=== PATIENT | female | born 1940 | race Caucasian/White ===

== ENCOUNTER 2019-06-12 18:40 | Inpatient (IN) | payer MEDICARE ==
[2019-06-12] MEDS ORDERED: Sodium Chloride 0.9% 10 ML Syringe FLUSH PRN (18:45)
--- NOTE | 2019-06-12 18:56 | EDM.PDOC ---
ED HPI GENERAL MEDICAL PROBLEM - General Chief Complaint: General Stated Complaint: MEDICAL Time Seen by Provider: 06/12/19 18:40 Source of Information: Reports: Patient, EMS History Limitations: Reports: Other (mild confusion) - History of Present Illness INITIAL COMMENTS - FREE TEXT/NARRATIVE: 79 yo female is brought in by EMS after she wouldn't answer her phone when the son called. Police notified by son. Police found her lying on the floor of her place where she lives alone. She is not clear how long or why she was on the floor. Mildly confused en route and on arrival. Is a Dr. Ruiz patient. Katlyn denies pain. Admits to daily ETOH. Onset: Unknown/Unsure Duration: Hour(s): Location: Reports: Generalized Quality: Reports: Other (no pain reported) Severity: Moderate Improves with: Reports: Other (unknown) Worsens with: Reports: Other (unknown) Context: Reports: Other (See HPI) Associated Symptoms: Reports: Confusion (mild), Syncope (vs elderly fall?). Denies: Fever/Chills, Headaches, Nausea/Vomiting, Seizure, Shortness of Breath Treatments SHIPPER/RECEIVER: Reports: Other (see below) (none) Denies Pain Score (Numeric/FACES): 0 - Related Data Allergies Allergy/AdvReac Type Severity Reaction Status Date / Time prednisone Allergy Rash Verified 06/12/19 18:54 Sulfa (Sulfonamide Allergy Rash Verified 06/12/19 18:54 Antibiotics) Home Meds: Home Meds Losartan [Cozaar] 50 mg PO DAILY 06/12/19 [History] Omeprazole 20 mg PO DAILY 06/12/19 [History] rOPINIRole [Requip] 1 mg PO DAILY 06/12/19 [History] ED ROS GENERAL - Review of Systems Review Of Systems: See Below Constitutional: Reports: Malaise HEENT: Reports: No Symptoms Respiratory: Reports: No Symptoms Cardiovascular: Reports: No Symptoms Endocrine: Reports: No Symptoms GI/Abdominal: Reports: No Symptoms : Reports: No Symptoms Musculoskeletal: Reports: No Symptoms Skin: Reports: No Symptoms Neurological: Reports: Confusion (mild) Psychiatric: Reports: No Symptoms ED EXAM, GENERAL - Physical Exam Exam: See Below Exam Limited By: No Limitations General Appearance: Alert, WD/WN, No Apparent Distress Eye Exam: Bilateral Eye: EOMI, PERRL, Other (Some blood from the R eye.) Ears: Normal External Exam, Normal Canal, Hearing Grossly Normal, Normal TMs Ear Exam: Bilateral Ear: Auricle Normal, Canal Normal, TM normal Nose: Normal Inspection, No Blood Throat/Mouth: Other (dry oral mucosa with some food adherent to teeth.) Head: Atraumatic, Normocephalic Neck: Normal Inspection, Non-Tender Respiratory/Chest: No Respiratory Distress, Lungs Clear, Normal Breath Sounds, No Accessory Muscle Use Cardiovascular: Regular Rate, Rhythm, No Edema GI/Abdominal: Normal Bowel Sounds, Soft, Non-Tender, No Distention Back Exam: Normal Inspection. No: CVA Tenderness (R), CVA Tenderness (L) Extremities: Normal Inspection, Normal Range of Motion, Non-Tender, No Pedal Edema Neurological: Alert, CN II-XII Intact, No Motor/Sensory Deficits, Other (mildly confused, says Dr. Ruiz was at her home today helping her with her leaves.) Psychiatric: Normal Affect, Normal Mood Skin Exam: Warm, Dry, Intact, Normal Color, No Rash EKG INTERPRETATION EKG Date: 06/12/19 Time: 19:45 Rhythm: NSR Rate (Beats/Min): 109 [place]: Normal P-Wave: Present QRS: Normal ST-T: Normal QT: Normal Comparison: NA - No Prior EKG EKG Interpretation Comments: ? anteroseptal infarct, old. Course - Vital Signs Text/Narrative:: Dr. Deleon paged @ , Dr. Ruiz called @ Last Recorded V/S: Last Vital Signs Temp 36.1 C 06/12/19 19:08 Pulse 109 H 06/12/19 20:23 Resp 18 06/12/19 19:08 BP 154/94 H 06/12/19 20:23 Pulse Ox 99 06/12/19 19:08 - Orders/Labs/Meds Orders: Active Orders 24 hr Category Date Time Status Cardiac Monitoring [RC] .As Directed Care 06/12/19 18:44 Active EKG Documentation Completion [RC] ASDIRECTED Care 06/12/19 19:46 Active CREATINE KINASE,CK [CHEM] Stat Lab 06/12/19 20:38 Received CULTURE BLOOD [BC] Stat Lab 06/12/19 18:45 Received CULTURE BLOOD [BC] Stat Lab 06/12/19 18:55 Received Piperacillin/Tazobactam [Zosyn] 3.375 gm Med 06/12/19 20:30 Active Sodium Chloride 0.9% [Normal Saline] 50 ml IV NOW Sodium Chloride 0.9% [Normal Saline] 1,000 ml Med 06/12/19 19:48 Active IV .BOLUS Sodium Chloride 0.9% [Saline Flush] Med 06/12/19 18:45 Active 10 ml FLUSH ASDIRECTED PRN Saline Lock Insert [OM.PC] Routine Oth 06/12/19 18:45 Ordered EKG 12 Lead [EK] Routine Ther 06/12/19 19:46 Ordered Medication Orders Sodium Chloride (Normal Saline) 1,000 mls @ 1,000 mls/hr IV .BOLUS ONE Stop: 06/12/19 20:47 Last Admin: 06/12/19 19:53 Dose: 1,000 mls/hr Piperacillin Sod/Tazobactam (Sod 3.375 gm/ Sodium Chloride) 50 mls @ 100 mls/ hr IV NOW STA Stop: 06/12/19 20:59 Sodium Chloride (Saline Flush) 10 ml FLUSH ASDIRECTED PRN PRN Reason: Keep Vein Open Labs: Laboratory Tests 06/12/19 06/12/19 06/12/19 Range/Units 18:58 18:58 18:58 WBC 8.4 (4.5-11.0) K/uL RBC 5.16 (3.30-5.50) M/uL Hgb 16.4 H (12.0-15.0) g/dL Hct 51.6 H (36.0-48.0) % MCV 100 H (80-98) fL MCH 32 H (27-31) pg MCHC 32 (32-36) % Plt Count 126 L (150-400) K/uL Sodium 139 L (140-148) mmol/L Potassium 5.0 (3.6-5.2) mmol/L Chloride 101 (100-108) mmol/L Carbon Dioxide 15 L (21-32) mmol/L Anion Gap 28.0 H (5.0-14.0) mmol/L BUN 58 H (7-18) mg/dL Creatinine 2.1 H (0.6-1.0) mg/dL Est Cr Clr Drug Dosing 16.02 mL/min Estimated GFR (MDRD) 23 L (>60) Glucose 79 (74-106) mg/dL Lactic Acid (0.4-2.0) mmol/L Calcium 9.8 (8.5-10.1) mg/dL Total Bilirubin 2.4 H (0.2-1.0) mg/dL AST 121 H (15-37) U/L ALT 83 H (12-78) U/L Alkaline Phosphatase 98 (46-116) U/L Troponin I 0.279 H* (0.000-0.056) ng/mL Total Protein 7.9 (6.4-8.2) g/dL Albumin 4.2 (3.4-5.0) g/dL Globulin 3.7 H (2.3-3.5) g/dL Albumin/Globulin Ratio 1.1 L (1.2-2.2) Urine Color (YELLOW) Urine Appearance (CLEAR) Urine pH (5.0-8.0) Ur Specific [place] (1.008-1.030) Urine Protein (NEGATIVE) mg/dL Urine Glucose (UA) (NEGATIVE) mg/dL Urine Ketones (NEGATIVE) mg/dL Urine Occult Blood (NEGATIVE) Urine Nitrite (NEGATIVE) Urine Bilirubin (NEGATIVE) Urine Urobilinogen (0.2-1.0) EU/dL Ur Leukocyte Esterase (NEGATIVE) Urine RBC (0-5) Urine WBC (0-5) Ur Epithelial Cells Amorphous Sediment Urine Bacteria Urine Mucus Urine Other Ethyl Alcohol < 3 mg/dL 06/12/19 06/12/19 Range/Units 19:49 20:19 WBC (4.5-11.0) K/uL RBC (3.30-5.50) M/uL Hgb (12.0-15.0) g/dL Hct (36.0-48.0) % MCV (80-98) fL MCH (27-31) pg MCHC (32-36) % Plt Count (150-400) K/uL Sodium (140-148) mmol/L Potassium (3.6-5.2) mmol/L Chloride (100-108) mmol/L Carbon Dioxide (21-32) mmol/L Anion Gap (5.0-14.0) mmol/L BUN (7-18) mg/dL Creatinine (0.6-1.0) mg/dL Est Cr Clr Drug Dosing mL/min Estimated GFR (MDRD) (>60) Glucose (74-106) mg/dL Lactic Acid 8.4 H (0.4-2.0) mmol/L Calcium (8.5-10.1) mg/dL Total Bilirubin (0.2-1.0) mg/dL AST (15-37) U/L ALT (12-78) U/L Alkaline Phosphatase (46-116) U/L Troponin I (0.000-0.056) ng/mL Total Protein (6.4-8.2) g/dL Albumin (3.4-5.0) g/dL Globulin (2.3-3.5) g/dL Albumin/Globulin Ratio (1.2-2.2) Urine Color Brown A (YELLOW) Urine Appearance Cloudy A (CLEAR) Urine pH 5.5 (5.0-8.0) Ur Specific [place] >= 1.030 (1.008-1.030) Urine Protein >=300 H (NEGATIVE) mg/dL Urine Glucose (UA) 100 H (NEGATIVE) mg/dL Urine Ketones Negative (NEGATIVE) mg/dL Urine Occult Blood Moderate H (NEGATIVE) Urine Nitrite Negative (NEGATIVE) Urine Bilirubin Moderate H (NEGATIVE) Urine Urobilinogen 1.0 (0.2-1.0) EU/dL Ur Leukocyte Esterase Negative (NEGATIVE) Urine RBC 5-10 H (0-5) Urine WBC 0-5 (0-5) Ur Epithelial Cells Moderate Amorphous Sediment Not seen Urine Bacteria Not seen Urine Mucus Many Urine Other Ethyl Alcohol mg/dL Meds: Medications Generic Name Dose Route Start Last Admin Trade Name Freq PRN Reason Stop Dose Admin Sodium Chloride 1,000 mls @ 1,000 mls/hr 06/12/19 19:48 06/12/19 19:53 Normal Saline IV 06/12/19 20:47 1,000 mls/hr .BOLUS ONE Administration Piperacillin Sod/Tazobactam 50 mls @ 100 mls/hr 06/12/19 20:30 Sod 3.375 gm/ Sodium Chloride IV 06/12/19 20:59 NOW STA Sodium Chloride 10 ml 06/12/19 18:45 Saline Flush FLUSH ASDIRECTED PRN Keep Vein Open Discontinued Medications Generic Name Dose Route Start Last Admin Trade Name Freq PRN Reason Stop Dose Admin Aspirin 324 mg 06/12/19 19:48 06/12/19 19:57 Aspirin PO 06/12/19 19:49 324 mg ONETIME ONE Administration Losartan Potassium 50 mg 06/12/19 19:50 06/12/19 19:56 Cozaar PO 06/12/19 19:51 50 mg ONETIME ONE Administration Metoprolol Tartrate 25 mg 06/12/19 19:55 06/12/19 20:09 Lopressor PO 06/12/19 19:56 25 mg ONETIME ONE Administration Departure - Departure Time of Disposition: 20:50 Disposition: Admitted As Inpatient 66 Condition: Fair Clinical Impression: Dehydration, Elevated LFTs Chronic renal failure Qualifiers: Chronic kidney disease stage: stage 4 (severe) Qualified Code(s): N18.4 - Chronic kidney disease, stage 4 (severe) - Discharge Information *PRESCRIPTION DRUG MONITORING PROGRAM REVIEWED*: No *COPY OF PRESCRIPTION DRUG MONITORING REPORT IN PATIENT AMBER: No Referrals: PCP,None [Primary Care Provider] - Forms: ED Department Discharge - My Orders Last 24 Hours: My Active Orders 06/12/19 18:44 Cardiac Monitoring [RC] .As Directed 06/12/19 18:45 CULTURE BLOOD [BC] Stat Sodium Chloride 0.9% [Saline Flush] 10 ml FLUSH ASDIRECTED PRN Saline Lock Insert [OM.PC] Routine 06/12/19 18:55 CULTURE BLOOD [BC] Stat 06/12/19 19:46 EKG Documentation Completion [RC] ASDIRECTED EKG 12 Lead [EK] Routine 06/12/19 19:48 Sodium Chloride 0.9% [Normal Saline] 1,000 ml IV .BOLUS 06/12/19 20:30 Piperacillin/Tazobactam [Zosyn] 3.375 gm Sodium Chloride 0.9% [Normal Saline] 50 ml IV NOW 06/12/19 20:38 CREATINE KINASE,CK [CHEM] Stat - Assessment/Plan Last 24 Hours: My Active Orders 06/12/19 18:44 Cardiac Monitoring [RC] .As Directed 06/12/19 18:45 CULTURE BLOOD [BC] Stat Sodium Chloride 0.9% [Saline Flush] 10 ml FLUSH ASDIRECTED PRN Saline Lock Insert [OM.PC] Routine 06/12/19 18:55 CULTURE BLOOD [BC] Stat 06/12/19 19:46 EKG Documentation Completion [RC] ASDIRECTED EKG 12 Lead [EK] Routine 06/12/19 19:48 Sodium Chloride 0.9% [Normal Saline] 1,000 ml IV .BOLUS 06/12/19 20:30 Piperacillin/Tazobactam [Zosyn] 3.375 gm Sodium Chloride 0.9% [Normal Saline] 50 ml IV NOW 06/12/19 20:38 CREATINE KINASE,CK [CHEM] Stat
[2019-06-12] MEDS ORDERED: Sodium Chloride 0.9% 1,000 ML IV ONE (19:48)
[2019-06-12] MEDS ORDERED: Aspirin 81 MG Tab.Chew PO ONE (19:48)
[2019-06-12] MEDS ORDERED: Losartan 50 MG Tab PO ONE (19:50)
[2019-06-12] MEDS ORDERED: Metoprolol Tartrate 25 MG Tab PO ONE (19:55)
[2019-06-12] MEDS ORDERED: Piperacillin/Tazobactam 3.375 GM in Sodium Chloride 0.9% 50 ML IV STA (20:30)
[2019-06-12] MEDS ORDERED: Sodium Chloride 0.9% 500 ML IV ONE (20:49)
[2019-06-12] MEDS ORDERED: Acetaminophen 325 MG Tab PO PRN (21:45)
[2019-06-12] MEDS: Sodium Chloride 0.9% 1,000 ML IV SCH (23:40)
--- NOTE | 2019-06-13 01:48 | HP ---
IDENTIFYING DATA: Katlyn Dee is a 79-year-old , female from [place], [place]. CHIEF COMPLAINT: Weakness and confusion. HISTORY OF PRESENT ILLNESS: This elderly female, who resides independently alone, generally performing ADLs, housekeeping, and errands with driving by self, is delivered to the emergency room by medical emergency personnel this evening. The family members in presence indicate for approximately 3-4 days' time, they have attempted to call and had no answer. Law enforcement was summoned this afternoon. They arrived at the house to find Katlyn lying on her kitchen floor for an unspecified period of time. Katlyn is confused, unable to provide factual information. She does note generalized discomfort and thirst, but offers no other complaints. Family has noted over the last 2-3 months transient episodes of mild confusion. Additionally, she has had 1 recent witnessed fall on an outside sidewalk with contusion to the right aspect of the face when she tripped during a family gathering in March. She has had no other reported falls. It is unknown whether she is using medications as prescribed. Family feels that she has had recent weight loss with reduced nutritional intake, though again this cannot be quantified with limited observation by family. She does have a remote history of heavy alcohol use, more recently reporting to myself during outpatient visits abstinence from use of alcohol. Family now reports that she has recently begun drinking again, although volume is unknown. PAST MEDICAL HISTORY: She has a history of chronic dysthymia, history of widespread atherosclerosis with previous CVA, peripheral vascular disease, abdominal aortic aneurysm repair, and noted ischemic heart disease. She does have accompanying hypertension and hyperlipidemia. MEDICATIONS: At present by medical records indicate a history of calcium 600 mg daily, vitamin D3 1000 units daily, ginkgo biloba extract 120 mg daily, losartan 50 mg daily, ropinirole 1 mg daily, vitamin E 400 units daily, aspirin 81 mg daily, atorvastatin 80 mg daily, omeprazole 20 mg daily, and sertraline 100 mg daily. Again, could not confirm use or disuse of medications. ALLERGIES: REPORTED TO PREDNISONE AND SULFA. HABITS: Remote history of tobacco use, believed to be abstaining. Recent reports of resumption of alcohol use. Caffeine intake is unknown. IMMUNIZATIONS: Unknown whether the patient has received her annual influenza vaccine. SOCIAL HISTORY: She is , living alone. Intermittent contact with family members. Generally performs ADLs independently, drives, shops, and maintains her household without assistance. FAMILY HISTORY: Unable to obtain. REVIEW OF SYSTEMS: NEUROLOGIC: She does wear glasses. Remote history of stroke secondary to aneurysmal bleed without residual neurologic deficits. No history of chronic headaches or glaucoma. CARDIAC: History of ischemic heart disease with previous interventional therapy. Denies chest pain or palpitations. Denies loss of consciousness. No history of diabetes, hypertension, and hyperlipidemia are managed with pharmacologic therapy. RESPIRATORY: No history of asthma, emphysema, or known tuberculosis. Denies cough or shortness of breath. GI: No history of hepatitis, jaundice, or chronic peptic ulcer disease. Dyspepsia is managed with PPI agents. Unknown state of bowel function at present. : The patient denies discomfort. Incontinence is noted. MUSCULOSKELETAL: General bruising and myalgias with arthralgias noted this evening after extended period of time on the floor. PHYSICAL EXAMINATION: GENERAL: Appearance is that of a weakened elderly female with noted confusion, unable to provide factual information. VITAL SIGNS: Initial vitals; temperature 36.1 degrees centigrade, pulse 109, respiratory rate 18, blood pressure 154/94, O2 sats 99% on room air. HEENT: Some bruising about the facial area. Mild conjunctival injection. Ears show normal canals. Pupils reactive to light and symmetrical in movement. Upper denture plate is missing. Some maceration of the lips. Oral mucosa is dry. NECK: Brisk carotid pulses. No bruits or JVD noted. No nuchal rigidity. LUNGS: Clear and non-tachypneic, symmetrical. HEART: Regular. Grade 1-2 outflow murmur at the aortic area. Controlled rate. ABDOMEN: Active sounds. Nondistended. No obvious organomegaly. Generalized diffuse mild tenderness to palpation without guarding, rebound, or referred pain. No CVA tenderness is noted. AND RECTAL: Omitted. EXTREMITIES: Bruises and superficial abrasions about the hands, proximal arms, knees, and pretibial regions. SKIN: Cool to touch. Diminished pulses chronically at the ankles secondary to peripheral vascular disease. No open ischemic skin lesions. No pitting edema. Some mottling of the fingertips and distal feet. NEUROLOGIC: Generally weakened. No focal weakness. Oriented to person, recognizes the examiner, disoriented to place and time. Unable to provide factual information regarding medical history. LABORATORY DATA: WBC 8.4, hemoglobin 16.4, platelet count 126,000. Sodium 139, potassium 5, BUN 58, creatinine 2.1. GFR 23, glucose 79, bilirubin 2.4, AST 121, ALT 83. Troponin elevated at 0.279. Albumin 4.2. Urinalysis reveals a specific gravity of 1.030 with positive proteinuria, scant glucosuria, moderate occult blood, and bilirubin, 5-10 rbc's, 0- 5 wbc's, no bacteria. Lactic acid elevated at 8.4. Ethyl alcohol level less than 3. IMPRESSION: 1. Period of isolation with general weakness, found in a confused weakened state on the kitchen floor following fall, unknown etiology. 2. History of chronic widespread atherosclerosis with PLSQL DEVELOPER, cardiac, and peripheral vascular disease in the remote past. 3. Hypertension. 4. Hyperlipidemia. 5. Remote history of heavy alcohol use. Family reports now possible resumption of alcohol use. 6. Dehydrated state with acute renal insufficiency secondary to fall. PLAN: The patient is admitted to inpatient status on the medical floor. We will provide IV fluids, Tylenol as analgesic, and resumption of oral home medications with the exception of losartan held in light of renal insufficiency. Allow oral food and fluid intake as tolerated. Followup labs including CBC, metabolic studies, and troponin are requested. Provide assistance with use of commode, up in chair as tolerated. Lloyd catheter is placed with her generally bedridden status. When stronger, we will initiate PT and OT rehab services. Likely will require alf placement following hospital discharge for ongoing recuperative stay. Full code status is enacted. Family including sons present this evening will be involved in medical decision making. Price Ruiz MD /[id number]
[2019-06-13] MEDS: Sodium Chloride 0.9% 1,000 ML IV SCH (04:26)
[2019-06-13] MEDS ORDERED: Sodium Chloride 0.9% 1,000 ML IV SCH (06:00)
--- NOTE | 2019-06-13 06:07 | PN ---
DATE OF SERVICE: 06/13/2019 SUBJECTIVE: A 79-year-old female was admitted in the late evening hours after being found weak and confused, and minimally responsive on her kitchen floor, having fallen and spent unknown length of time without assistance. She had evidence of dehydration and scattered bruises. Family last noted conversation with her 4 days prior to her being discovered. They also report a 4-month history of transient periods of confusion as well as weakness, weight loss, and fall. Questioned poor nutritional intake and potential resumption of alcohol use. Through the nighttime hours, she has been somnolent, sleeping intermittently, requiring assistance of 2 to transfer. Lloyd catheter was placed to monitor urinary output with IV fluids running. She notes generalized mild discomfort. Not requiring analgesic therapy. Nasal cannula oxygen is in place. OBJECTIVE: VITAL SIGNS: Temperature 35.8 degrees centigrade, pulse 66, blood pressure 115/71, respiratory rate 18, O2 sats 100% with nasal cannula oxygen at 3 L/minute. LUNGS: Non-tachypneic. No wheezes or rales heard. HEART: Heart sounds are regular, distant. No gallops noted. EXTREMITIES: Remain cool to touch with a noted history of peripheral vascular disease and chronic marginal perfusion. ABDOMEN: Nondistended with active sounds. Diffuse mild tenderness to deep palpation. No guarding or rebound. LABORATORY DATA: Followup labs this a.m., WBC 7.5, hemoglobin 15.3, platelet count 97,000. Creatine kinase during the nighttime hours was found to be elevated at 366. Repeat general chemistries are pending this a.m. IMPRESSION AND PLAN: 1. Confusion, weakness, likely secondary to fall with accompanying dehydration, acute renal failure. We will continue with IV fluids. Encouraged oral intake including caloric and fluid intake as tolerated. Assistance with self cares will be required when condition shows overall improvement. Consider initiation of PT/OT assessment. I have indicated to family likely will require shelter placement as her recovery progresses. 2. Noted history of elevated liver function tests on admission through the emergency room. Abdominal ultrasound is requested today to exclude hepatobiliary disease. Family has noted resumption of alcohol use. Does have a remote history of heavy use. 3. First dose of Zosyn was provided in the emergency room with blood cultures pending. No obvious signs of active infection at the current time. We will hold antibiotic therapy and review blood cultures on completion. Follow up labs including a CBC, creatine kinase, and general chemistries are requested for 06/14/2019. Price Ruiz MD /[id number]
[2019-06-13] MEDS: Pantoprazole 40 MG Tab.CR PO SCH ×2 (08:38→10:13)
[2019-06-13] MEDS ORDERED: Aspirin 81 MG Tab.EC PO SCH (09:00)
[2019-06-13] MEDS ORDERED: Sertraline 50 MG Tab PO SCH (09:00)
--- NOTE | 2019-06-13 10:22 | CRLUS ---
INDICATION: Elevated LFTs. COMPARISON: None. TECHNIQUE: Real time holt scale imaging and color Doppler analysis was performed of the right upper quadrant. FINDINGS: Liver: Normal echogenicity. Mildly coarsened hepatic echotexture can be seen with chronic parenchymal disease. No focal liver lesions. Gallbladder: There is a 3 mm non shadowing echogenic wall focus most likely representing a small polyp. No stones or sludge. There is diffuse gallbladder wall thickening measuring 8 mm. No pericholecystic fluid. Positive sonographic Nino sign. Bile ducts: The proximal common bile duct is mildly dilated, measuring 8 mm in diameter. The distal common bile duct is not well seen and cannot exclude a distal obstructing stone. Pancreas: Normal where seen. Right kidney: The right kidney measures 8.0 cm in length. No hydronephrosis, calculus, or mass. Vascular: The abdominal aorta is normal in caliber. The main portal vein is patent with normal hepatopetal flow. Ascites: None. IMPRESSION: 1. Diffusely thick-walled gallbladder with dilation of the proximal common bile duct and positive sonographic Nino sign. No stones are seen within the gallbladder itself, however a distal obstructing bile duct stone cannot be excluded based on this exam. Findings are equivocal and could represent acute cholecystitis, however gallbladder wall thickening can also be seen with underlying liver disease. 2. Mildly coarsened hepatic echotexture can be seen with chronic parenchymal disease. 3. Small 3 mm gallbladder polyp. Dictated by Muna Avelar MD @ Jun 13 2019 10:05AM Signed by Dr. Muna Avelar @ Jun 13 2019 10:19AM
[2019-06-13] MEDS ORDERED: Thiamine 100 MG Tab PO SCH (12:00)
[2019-06-13] MEDS ORDERED: Folic Acid 1 MG Tab PO SCH (12:00)
[2019-06-13] MEDS ORDERED: LORazepam 1 MG Tab PO SCH (12:00)
[2019-06-13] MEDS ORDERED: Sodium Polystyrene Sulfonate 15 GM/60 ML Susp 60 ML Bot PO ONE ×2 (12:00→13:30)
--- NOTE | 2019-06-13 12:09 | PCM.PN ---
- General Info Date of Service: 06/13/19 Subjective Update: Ms. Dee is a 79-year-old woman who was admitted through the emergency department last night by Dr. Ruiz. There is some question as to whether she is been consuming alcohol again, she was found on the floor in her kitchen. Duration of time spent on the floor is unknown although she did not have a significant increase in her CK level. She was very confused, family reports a history of progressive cognitive decline over the past few months. She also has become progressively more weak. Lactic acid level was noted to be significantly elevated, likely secondary to severe dehydration. She was found to have acute kidney injury and also mild elevation in her troponin level, felt to be secondary to stress of acute kidney injury and dehydration. She remains very confused and is unable to provide a meaningful history concerning recent symptoms or review of systems. - Patient Data Vitals - Most Recent: Last Vital Signs Temp 97.6 F 06/13/19 10:31 Pulse 61 06/13/19 10:31 Resp 18 06/13/19 10:31 BP 125/74 06/13/19 10:31 Pulse Ox 100 06/13/19 10:31 Weight - Most Recent: 125 lb 11.2 oz I&O - Last 24 Hours: Intake & Output 06/12/19 06/13/19 06/13/19 22:59 06:59 14:59 Output Total 70 10 Balance -70 -10 Lab Results Last 24 Hours: Laboratory Results - last 24 hr 06/12/19 06/12/19 06/12/19 Range/Units 18:58 18:58 18:58 WBC 8.4 (4.5-11.0) K/uL RBC 5.16 (3.30-5.50) M/uL Hgb 16.4 H (12.0-15.0) g/dL Hct 51.6 H (36.0-48.0) % MCV 100 H (80-98) fL MCH 32 H (27-31) pg MCHC 32 (32-36) % Plt Count 126 L (150-400) K/uL Sodium 139 L (140-148) mmol/L Potassium 5.0 (3.6-5.2) mmol/L Chloride 101 (100-108) mmol/L Carbon Dioxide 15 L (21-32) mmol/L Anion Gap 28.0 H (5.0-14.0) mmol/L BUN 58 H (7-18) mg/dL Creatinine 2.1 H (0.6-1.0) mg/dL Est Cr Clr Drug Dosing 16.02 mL/min Estimated GFR (MDRD) 23 L (>60) Glucose 79 (74-106) mg/dL Lactic Acid (0.4-2.0) mmol/L Calcium 9.8 (8.5-10.1) mg/dL Total Bilirubin 2.4 H (0.2-1.0) mg/dL AST 121 H (15-37) U/L ALT 83 H (12-78) U/L Alkaline Phosphatase 98 (46-116) U/L Creatine Kinase (26-192) U/L Troponin I 0.279 H* (0.000-0.056) ng/mL Total Protein 7.9 (6.4-8.2) g/dL Albumin 4.2 (3.4-5.0) g/dL Globulin 3.7 H (2.3-3.5) g/dL Albumin/Globulin Ratio 1.1 L (1.2-2.2) Urine Color (YELLOW) Urine Appearance (CLEAR) Urine pH (5.0-8.0) Ur Specific [place] (1.008-1.030) Urine Protein (NEGATIVE) mg/dL Urine Glucose (UA) (NEGATIVE) mg/dL Urine Ketones (NEGATIVE) mg/dL Urine Occult Blood (NEGATIVE) Urine Nitrite (NEGATIVE) Urine Bilirubin (NEGATIVE) Urine Urobilinogen (0.2-1.0) EU/dL Ur Leukocyte Esterase (NEGATIVE) Urine RBC (0-5) Urine WBC (0-5) Ur Epithelial Cells Amorphous Sediment Urine Bacteria Urine Mucus Urine Other Ethyl Alcohol < 3 mg/dL 06/12/19 06/12/19 06/12/19 Range/Units 19:49 20:19 20:38 WBC (4.5-11.0) K/uL RBC (3.30-5.50) M/uL Hgb (12.0-15.0) g/dL Hct (36.0-48.0) % MCV (80-98) fL MCH (27-31) pg MCHC (32-36) % Plt Count (150-400) K/uL Sodium (140-148) mmol/L Potassium (3.6-5.2) mmol/L Chloride (100-108) mmol/L Carbon Dioxide (21-32) mmol/L Anion Gap (5.0-14.0) mmol/L BUN (7-18) mg/dL Creatinine (0.6-1.0) mg/dL Est Cr Clr Drug Dosing mL/min Estimated GFR (MDRD) (>60) Glucose (74-106) mg/dL Lactic Acid 8.4 H (0.4-2.0) mmol/L Calcium (8.5-10.1) mg/dL Total Bilirubin (0.2-1.0) mg/dL AST (15-37) U/L ALT (12-78) U/L Alkaline Phosphatase (46-116) U/L Creatine Kinase 366 H (26-192) U/L Troponin I (0.000-0.056) ng/mL Total Protein (6.4-8.2) g/dL Albumin (3.4-5.0) g/dL Globulin (2.3-3.5) g/dL Albumin/Globulin Ratio (1.2-2.2) Urine Color Brown A (YELLOW) Urine Appearance Cloudy A (CLEAR) Urine pH 5.5 (5.0-8.0) Ur Specific [place] >= 1.030 (1.008-1.030) Urine Protein >=300 H (NEGATIVE) mg/dL Urine Glucose (UA) 100 H (NEGATIVE) mg/dL Urine Ketones Negative (NEGATIVE) mg/dL Urine Occult Blood Moderate H (NEGATIVE) Urine Nitrite Negative (NEGATIVE) Urine Bilirubin Moderate H (NEGATIVE) Urine Urobilinogen 1.0 (0.2-1.0) EU/dL Ur Leukocyte Esterase Negative (NEGATIVE) Urine RBC 5-10 H (0-5) Urine WBC 0-5 (0-5) Ur Epithelial Cells Moderate Amorphous Sediment Not seen Urine Bacteria Not seen Urine Mucus Many Urine Other Ethyl Alcohol mg/dL 06/13/19 06/13/19 06/13/19 Range/Units 05:00 05:05 05:05 WBC 7.5 (4.5-11.0) K/uL RBC 4.81 (3.30-5.50) M/uL Hgb 15.3 H (12.0-15.0) g/dL Hct 48.4 H (36.0-48.0) % MCV 101 H (80-98) fL MCH 32 H (27-31) pg MCHC 32 (32-36) % Plt Count 97 L (150-400) K/uL Sodium 140 (140-148) mmol/L Potassium 5.6 H (3.6-5.2) mmol/L Chloride 108 (100-108) mmol/L Carbon Dioxide 13 L (21-32) mmol/L Anion Gap 24.6 H (5.0-14.0) mmol/L BUN 59 H (7-18) mg/dL Creatinine 2.1 H (0.6-1.0) mg/dL Est Cr Clr Drug Dosing 17.18 mL/min Estimated GFR (MDRD) 23 L (>60) Glucose 70 L (74-106) mg/dL Lactic Acid (0.4-2.0) mmol/L Calcium 8.3 L D (8.5-10.1) mg/dL Total Bilirubin 2.3 H (0.2-1.0) mg/dL AST 259 H D (15-37) U/L ALT 120 H (12-78) U/L Alkaline Phosphatase 79 (46-116) U/L Creatine Kinase 394 H (26-192) U/L Troponin I 0.494 H* (0.000-0.056) ng/mL Total Protein 6.4 (6.4-8.2) g/dL Albumin 3.3 L (3.4-5.0) g/dL Globulin 3.1 (2.3-3.5) g/dL Albumin/Globulin Ratio 1.1 L (1.2-2.2) Urine Color (YELLOW) Urine Appearance (CLEAR) Urine pH (5.0-8.0) Ur Specific [place] (1.008-1.030) Urine Protein (NEGATIVE) mg/dL Urine Glucose (UA) (NEGATIVE) mg/dL Urine Ketones (NEGATIVE) mg/dL Urine Occult Blood (NEGATIVE) Urine Nitrite (NEGATIVE) Urine Bilirubin (NEGATIVE) Urine Urobilinogen (0.2-1.0) EU/dL Ur Leukocyte Esterase (NEGATIVE) Urine RBC (0-5) Urine WBC (0-5) Ur Epithelial Cells Amorphous Sediment Urine Bacteria Urine Mucus Urine Other Ethyl Alcohol mg/dL Med Orders - Current: Current Medications Acetaminophen (Tylenol) 650 mg PO Q4H PRN PRN Reason: Pain Aspirin (Halfprin) 81 mg PO DAILY [facility] Last Admin: 06/13/19 10:13 Dose: 81 mg Atorvastatin Calcium (Lipitor) 80 mg PO BEDTIME [facility] Folic Acid (Folic Acid) 1 mg PO DAILY [facility] Gentamicin Sulfate (Garamycin 0.3% Ophth Soln) 0 ml EYERT TID [facility] Sodium Chloride (Normal Saline) 1,000 mls @ 75 mls/hr IV ASDIRECTED [facility] Last Admin: 06/13/19 05:56 Dose: 75 mls/hr Multivitamins/Minerals 10 ml/Thiamine HCl 100 mg/ Folic Acid 1 mg/ Magnesium Sulfate 2 gm/ Sodium Chloride 1,015.2 mls @ 100 mls/hr IV ONETIME ONE Stop: 06/13/19 22:02 Influenza Virus Vaccine (Fluzone High-Dose Syringe) 180 mcg IM .ONCE ONE Stop: 06/14/19 14:01 Lorazepam (Ativan) 0 mg PO ASDIRECTED [facility]; Protocol Pantoprazole Sodium (Protonix) 40 mg PO ACBREAKFAST [facility] Last Admin: 06/13/19 10:13 Dose: 40 mg Sertraline HCl (Zoloft) 100 mg PO DAILY [facility] Last Admin: 06/13/19 10:13 Dose: 100 mg Sodium Polystyrene Sulfonate (Kayexalate) 30 gm PO ONETIME ONE Stop: 06/13/19 11:56 Thiamine HCl (Vitamin B-1) 100 mg PO DAILY [facility] Discontinued Medications Aspirin (Aspirin) 324 mg PO ONETIME ONE Stop: 06/12/19 19:49 Last Admin: 06/12/19 19:57 Dose: 324 mg Sodium Chloride (Normal Saline) 1,000 mls @ 1,000 mls/hr IV .BOLUS ONE Stop: 06/12/19 20:47 Last Admin: 06/12/19 19:53 Dose: 1,000 mls/hr Piperacillin Sod/Tazobactam (Sod 3.375 gm/ Sodium Chloride) 50 mls @ 100 mls/ hr IV NOW STA Stop: 06/12/19 20:59 Last Admin: 06/12/19 21:10 Dose: 100 mls/hr Sodium Chloride (Normal Saline) 500 mls @ 1,000 mls/hr IV .BOLUS ONE Stop: 06/12/19 21:18 Last Admin: 06/12/19 21:05 Dose: 1,000 mls/hr Sodium Chloride (Normal Saline) 1,000 mls @ 125 mls/hr IV ASDIRECTED [facility] Last Infusion: 06/13/19 05:55 Dose: 125 mls/hr Losartan Potassium (Cozaar) 50 mg PO ONETIME ONE Stop: 06/12/19 19:51 Last Admin: 06/12/19 19:56 Dose: 50 mg Metoprolol Tartrate (Lopressor) 25 mg PO ONETIME ONE Stop: 06/12/19 19:56 Last Admin: 06/12/19 20:09 Dose: 25 mg Sodium Chloride (Saline Flush) 10 ml FLUSH ASDIRECTED PRN PRN Reason: Keep Vein Open - Exam Quality Assessment: DVT Prophylaxis General: Lethargic, Other (Confused) Lungs: Clear to Auscultation, Normal Respiratory Effort Cardiovascular: Regular Rate, Regular Rhythm, No Murmurs GI/Abdominal Exam: Soft, Non-Tender, No Organomegaly, No Distention Extremities: Non-Tender, No Pedal Edema Skin: Warm, Dry, Ecchymosis - Problem List Review Problem List Initiated/Reviewed/Updated: Yes - My Orders Last 24 Hours: My Active Orders 06/13/19 11:53 CIWAA Assessment [RC] Q4H Notify Provider [RC] PRN MVI, Adult with Vitamin K [Infuvite Adult] 10 ml Thiamine [Vitamin B-1] 100 mg Folic Acid 1 mg Magnesium Sulfate [Magnesium Sulfate 50%] 2 gm Sodium Chloride 0.9% [Normal Saline] 1,000 ml IV ONETIME 06/13/19 11:55 Sodium Polystyrene Sulfonate [Kayexalate] 30 gm PO ONETIME ONE 06/13/19 12:00 Folic Acid 1 mg PO DAILY LORazepam [Ativan] See Protocol PO ASDIRECTED Thiamine [Vitamin B-1] 100 mg PO DAILY 06/13/19 14:00 Gentamicin [Garamycin 0.3% Ophth Soln] See Dose Instructions EYERT TID 06/13/19 17:00 CREATININE W/GFR [CHEM] Stat LACTIC ACID [CHEM] Stat POTASSIUM,K [CHEM] Stat TROPONIN I [CHEM] Stat 06/14/19 05:00 CBC WITH AUTO DIFF [HEME] Timed COMPREHENSIVE METABOLIC PN,CMP [CHEM] Timed TROPONIN I [CHEM] Timed - Plan Plan:: ASSESSMENT AND PLAN ACUTE KIDNEY INJURY-likely secondary to dehydration, no evidence of significant rhabdo myelolysis. -IV fluids for hydration -Closely monitor urine output and renal function HYPERKALEMIA-secondary to acute renal insufficiency -Kayexalate now -Recheck potassium later today and in a.m. LACTIC ACIDOSIS-no evidence of underlying infection or sepsis, likely secondary to severe dehydration -Follow-up lactic acid level later today INCREASED CONFUSION AND LETHARGY-likely secondary to baseline dementia as well as acute illness with kidney injury ELEVATED TROPONIN-secondary to demand ischemia in the setting of acute kidney injury and severe dehydration. She does have known underlying coronary artery disease as well as peripheral arterial disease. -Serial troponin levels HISTORY OF ALCOHOL ABUSE-liver enzymes noted to be elevated, likely secondary to alcoholic hepatitis and recent alcohol use -Monitor liver studies closely -Monitor for alcohol withdrawal -Alcohol withdrawal protocol -Gabapentin 400 mg every 8 hours for 4 days, followed by 200 mg every 8 hours for an additional 4 days ACUTE ALCOHOLIC HEPATITIS MAINTENANCE ISSUES -DVT prophylaxis; mild thrombocytopenia, will hold anticoagulation, use scuds for DVT prophylaxis -GI prophylaxis; not indicated -Lloyd catheter; placed to monitor urine output -Nutrition; regular diet -Nicotine dependence; not required CODE STATUS-FULL CODE ADMISSION STATUS-patient will be admitted to inpatient status, expect at least a 2 night hospital stay for evaluation and management of problems as outlined above. At the time of this admission I do not reasonably expected evaluation and management of this problem will require more than a 96 hour hospital stay. DISPOSITION-anticipate discharge to intermediate PRIMARY CARE PROVIDER-Dr. Ruiz
[2019-06-13] MEDS ORDERED: MVI, Adult with Vitamin K 10 ML, Thiamine 100 MG, Folic Acid 1 MG, Magnesium Sulfate 2 ... IV ONE ×5 (14:00)
[2019-06-13] MEDS ORDERED: Gentamicin 0.3% Ophth Soln 5 ML Bottle EYERT SCH (14:00)
[2019-06-13] MEDS ORDERED: atorvaSTATin 20 MG Tab PO SCH (21:00)
--- NOTE | 2019-06-14 13:20 | PCM.DCSUM1 ---
Discharge Summary - Hospital Course Brief History: Ms. Dee is a 79-year-old woman who was admitted through the emergency department with weakness, lethargy, and decreased level of consciousness secondary to a fall at home and acute kidney injury. - Discharge Data Discharge Date: 06/13/19 Discharge Disposition: DC/Tfer to Acute Hospital 02 Condition: Fair - Referral to [facility] Primary Care Physician: PCP None - Discharge Diagnosis/Problem(s) (1) ROLANDO (acute kidney injury) SNOMED Code(s): 66872842, 51718521 ICD Code: N17.9 - ACUTE KIDNEY FAILURE, UNSPECIFIED Status: Acute (2) Decreased level of consciousness SNOMED Code(s): 164833645 ICD Code: R40.4 - TRANSIENT ALTERATION OF AWARENESS Status: Acute (3) Non-ST elevated myocardial infarction (non-STEMI) SNOMED Code(s): 50919918 ICD Code: I21.4 - NON-ST ELEVATION (NSTEMI) MYOCARDIAL INFARCTION Status: Acute (4) Alcohol abuse SNOMED Code(s): 37703068 ICD Code: F10.10 - ALCOHOL ABUSE, UNCOMPLICATED Status: Acute (5) Dehydration SNOMED Code(s): 63133814 ICD Code: E86.0 - DEHYDRATION Status: Acute (6) Elevated LFTs SNOMED Code(s): 996289118, 610932586 ICD Code: R94.5 - ABNORMAL RESULTS OF LIVER FUNCTION STUDIES Status: Acute (7) Lactic acidosis SNOMED Code(s): 69384833 ICD Code: E87.2 - ACIDOSIS Status: Acute - Patient Summary/Data Hospital Course: Ms. Dee is a 79-year-old woman who was admitted through the emergency department last by Dr. Ruiz. He has a known history of chronic alcohol use but had been abstinent from alcohol over the past few months, there is some question as to whether she has been consuming alcohol again, she was found on the floor in her kitchen. Duration of time spent on the floor is unknown although she did not have a significant increase in her CK level. She was very confused, family reports a history of progressive cognitive decline over the past few months. She also has become progressively more weak. Lactic acid level was noted to be significantly elevated, likely secondary to severe dehydration. She was found to have acute kidney injury and also mild elevation in her troponin level, felt to be secondary to stress of acute kidney injury and dehydration. She remains very confused and is unable to provide a meaningful history concerning recent symptoms or review of systems. On admission she was given IV fluids for hydration. Creatinine increased slightly during hospitalization and urine output remained extremely low. Lactic acid level did improve and almost normalized following hydration. On the morning after admission potassium level was noted to be elevated, this was felt secondary to her acute kidney injury. She was given 1 dose of Kayexalate and by the time of transfer potassium level had normalized. Liver enzymes were elevated and felt to be consistent with acute alcoholic hepatitis. Troponin level was elevated on admission at 0.27 and was thought to be secondary to demand ischemia in the setting of dehydration and acute kidney injury. Following morning troponin had increased to 0.48. Troponin level was rechecked on the night of transfer and found to be more significantly elevated at 1.9. She was transferred to tertiary care center for further evaluation and management. - Patient Instructions Diet: Usual Diet as Tolerated Activity: As Tolerated - Discharge Plan *PRESCRIPTION DRUG MONITORING PROGRAM REVIEWED*: No *COPY OF PRESCRIPTION DRUG MONITORING REPORT IN PATIENT AMBER: No Home Medications: Home Meds Aspirin [Halfprin] 81 mg PO DAILY 06/12/19 [History] Calcium Carbonate [Calcium] 600 mg PO DAILY 06/12/19 [History] Cholecalciferol (Vitamin D3) [Vitamin D3] 1,000 unit PO DAILY 06/12/19 [History] Ginkgo Biloba Extract [Ginkgo Biloba] 120 mg PO DAILY 06/12/19 [History] Losartan [Cozaar] 50 mg PO DAILY 06/12/19 [History] Omeprazole 20 mg PO DAILY 06/12/19 [History] Sertraline [Zoloft] 100 mg PO DAILY 06/12/19 [History] Vitamin E 400 unit PO DAILY 06/12/19 [History] atorvaSTATin [Lipitor] 80 mg PO BEDTIME 06/12/19 [History] rOPINIRole [Requip] 1 mg PO DAILY 06/12/19 [History] - Discharge Summary/Plan Comment DC Time >30 min.: No - Patient Data Vitals - Most Recent: Last Vital Signs Temp 98.7 F 06/13/19 18:24 Pulse 64 06/13/19 18:24 Resp 20 06/13/19 18:24 BP 132/75 06/13/19 18:24 Pulse Ox 94 L 06/13/19 18:24 Weight - Most Recent: 125 lb 11.2 oz I&O - Last 24 hours: Intake & Output 06/13/19 06/14/19 06/14/19 22:59 06:59 14:59 Intake Total 575 Output Total 35 Balance 540 Lab Results - Last 24 hrs: Laboratory Results - last 24 hr 06/13/19 06/13/19 Range/Units 16:53 16:53 Potassium 4.9 (3.6-5.2) mmol/L Creatinine 2.3 H (0.6-1.0) mg/dL Est Cr Clr Drug Dosing 15.69 mL/min Estimated GFR (MDRD) 20 L (>60) Lactic Acid 2.7 H (0.4-2.0) mmol/L Troponin I 1.911 H* (0.000-0.056) ng/mL [facility] Results - Last 24 hrs: Microbiology 06/12/19 18:55 Aerobic Blood Culture - Preliminary Blood - Arm, Right NO GROWTH AFTER 1 DAY Anaerobic Blood Culture - Preliminary NO GROWTH AFTER 1 DAY 06/12/19 18:45 Aerobic Blood Culture - Preliminary Blood - Venous - Iv Start NO GROWTH AFTER 1 DAY Anaerobic Blood Culture - Preliminary NO GROWTH AFTER 1 DAY Med Orders - Current: Current Medications Discontinued Medications Acetaminophen (Tylenol) 650 mg PO Q4H PRN PRN Reason: Pain Aspirin (Aspirin) 324 mg PO ONETIME ONE Stop: 06/12/19 19:49 Last Admin: 06/12/19 19:57 Dose: 324 mg Aspirin (Halfprin) 81 mg PO DAILY [facility] Last Admin: 06/13/19 10:13 Dose: 81 mg Atorvastatin Calcium (Lipitor) 80 mg PO BEDTIME [facility] Folic Acid (Folic Acid) 1 mg PO DAILY [facility] Last Admin: 06/13/19 13:47 Dose: 1 mg Gentamicin Sulfate (Garamycin 0.3% Oph Soln) 0 ml EYERT TID [facility] Last Admin: 06/13/19 13:47 Dose: 2 drop Sodium Chloride (Normal Saline) 1,000 mls @ 1,000 mls/hr IV .BOLUS ONE Stop: 06/12/19 20:47 Last Admin: 06/12/19 19:53 Dose: 1,000 mls/hr Piperacillin Sod/Tazobactam (Sod 3.375 gm/ Sodium Chloride) 50 mls @ 100 mls/ hr IV NOW STA Stop: 06/12/19 20:59 Last Admin: 06/12/19 21:10 Dose: 100 mls/hr Sodium Chloride (Normal Saline) 500 mls @ 1,000 mls/hr IV .BOLUS ONE Stop: 06/12/19 21:18 Last Admin: 06/12/19 21:05 Dose: 1,000 mls/hr Sodium Chloride (Normal Saline) 1,000 mls @ 125 mls/hr IV ASDIRECTED [facility] Last Infusion: 06/13/19 05:55 Dose: 125 mls/hr Sodium Chloride (Normal Saline) 1,000 mls @ 75 mls/hr IV ASDIRECTED [facility] Last Admin: 06/13/19 05:56 Dose: 75 mls/hr Multivitamins/Minerals 10 ml/Thiamine HCl 100 mg/ Folic Acid 1 mg/ Magnesium Sulfate 2 gm/ Sodium Chloride 1,015.2 mls @ 100 mls/hr IV ONETIME ONE Stop: 06/14/19 00:09 Last Admin: 06/13/19 13:48 Dose: 100 mls/hr Influenza Virus Vaccine (Fluzone High-Dose 2018- Syringe) 180 mcg IM .ONCE ONE Stop: 06/14/19 14:01 Lorazepam (Ativan) 0 mg PO ASDIRECTED [facility]; Protocol Losartan Potassium (Cozaar) 50 mg PO ONETIME ONE Stop: 06/12/19 19:51 Last Admin: 06/12/19 19:56 Dose: 50 mg Metoprolol Tartrate (Lopressor) 25 mg PO ONETIME ONE Stop: 06/12/19 19:56 Last Admin: 06/12/19 20:09 Dose: 25 mg Pantoprazole Sodium (Protonix) 40 mg PO ACBREAKFAST [facility] Last Admin: 06/13/19 10:13 Dose: 40 mg Sertraline HCl (Zoloft) 100 mg PO DAILY [facility] Last Admin: 06/13/19 10:13 Dose: 100 mg Sodium Chloride (Saline Flush) 10 ml FLUSH ASDIRECTED PRN PRN Reason: Keep Vein Open Sodium Polystyrene Sulfonate (Kayexalate) 30 gm PO ONETIME ONE Stop: 06/13/19 13:31 Last Admin: 06/13/19 13:47 Dose: 15 gm Thiamine HCl (Vitamin B-1) 100 mg PO DAILY [facility] Last Admin: 06/13/19 13:47 Dose: 100 mg - Exam Quality Assessment: Reports: DVT Prophylaxis General: Reports: Cooperative, Mild Distress, Lethargic Lungs: Reports: Clear to Auscultation, Normal Respiratory Effort, Decreased Breath Sounds Cardiovascular: Reports: Regular Rate, Regular Rhythm, No Murmurs GI/Abdominal Exam: Soft, Non-Tender, No Organomegaly, No Distention Extremities: Non-Tender, No Pedal Edema
== END 2019-06-13 19:15 | DRG 682 ==
LOC: JP.ED 18:40 → JP.MS 21:01
PROVIDERS: ADMIT Family Medicine; ATTEND Family Medicine
DX: N17.9 Acute kidney failure, unspecified (principal); R53.1 Weakness; R41.0 Disorientation, unspecified; I21.4 Non-ST elevation (NSTEMI) myocardial infarction; E87.2 Acidosis; I73.9 Peripheral vascular disease, unspecified; E78.5 Hyperlipidemia, unspecified; Z79.82 Long term (current) use of aspirin; Z79.899 Other long term (current) drug therapy; E86.0 Dehydration; I12.9 Hypertensive chronic kidney disease with stage 1 through stage 4 chronic kidney disease, or unspecified chronic kidney disease; N18.4 Chronic kidney disease, stage 4 (severe); W19.XXXA Unspecified fall, initial encounter; E87.5 Hyperkalemia; I25.10 Atherosclerotic heart disease of native coronary artery without angina pectoris; K70.10 Alcoholic hepatitis without ascites; R40.4 Transient alteration of awareness; F10.10 Alcohol abuse, uncomplicated; R94.5 Abnormal results of liver function studies; Z88.2 Allergy status to sulfonamides; Z88.8 Allergy status to other drugs, medicaments and biological substances; Z86.73 Personal history of transient ischemic attack (TIA), and cerebral infarction without residual deficits
CPT/HCPCS: 36415; 51702; 76705; 80053; 81001; 82550; 82565; 83605; 84132; 84484; 85027; 87040; 93005; 96360; 99285-25; A9270-GY; G0480; J2543; J3411; J3475; J3490; J7030; J7040; J7050